=== PATIENT | male | born 2005 | race Caucasian/White ===

== ENCOUNTER 2024-02-27 23:59 | Emergency (ER) | payer OTHER, SELFPAY ==
[2024-02-28] VITALS: BP 152/85; BMI 27.9
--- NOTE | 2024-02-28 00:44 | ED.SKININJ ---
HPI-Injury
<POLLY Rodriguez - Last Filed: 02/28/24 06:12>
General
Chief Complaint: Skin Problem
Time Seen by Provider: 02/28/24 00:35
Travel History
Have you had any contact with someone who has COVID-19?: No
Do you have any symptoms of coronavirus? Fever > 100 degrees, chills, cough, shortness of breath, sore throat, loss of taste or smell, muscle aches, or headache?: No
History of Present Illness-Injury
Initial Injury comments:
This is a 18 yo male presenting for a laceration to his L anterior wrist which happened 1 hour ago. He states he fell in a parking lot and cut his wrist while reaching for the ground, he suspects it was a piece of glass. He states the wound has not
stopped bleeding since the injury.
He denies purulent drainage, N/V.
No neurovascular deficits proximal or distal to the injury.
Past History
<POLLY Rodriguez - Last Filed: 02/28/24 06:12>
Past History
ED Past Medical History: Psychiatric (Anxiety, Depression) and Other (Domenic schlatter's disease)
ED Past Surgical History: Orthopedic (ORIF Right elbow, Thumb surgery, )
Social History
Tobacco: Non-smoker
Alcohol: Occasional
Personal: Single
Living: with family
Review of Systems
<POLLY Rodriguez - Last Filed: 02/28/24 06:12>
Review of Systems
Allergies reviewed?: Yes
Constitutional: Reports no symptoms
Skin: Reports other (laceration)
Skin Exam
<POLLY Rodriguez - Last Filed: 02/28/24 06:12>
Laceration
Left Anterior Radial:
Orientation: diagonal
Type of Laceration: simple
Any active bleeding?: low grade venous oozing
Distal skin color and temperature: normal-warm & good color
Normal distal neurovascular exam: Yes
Range of motion: full
Phy Exam
<POLLY Rodriguez - Last Filed: 02/28/24 06:12>
General Physical Exam
General Presentation: well appearing
General age: appears stated age
Musculoskeletal Exam
Musculoskeletal Exam: full ROM
Skin Exam
Skin Exam: laceration (laceration on L anterior radius. No redness or swelling is noted.)
Course
<POLLY Rodriguez - Last Filed: 02/28/24 06:12>
Orders/Labs/Results
Orders:
Orders
02/28/24 00:54
CR Wrist - Left Min 2 Views Urgent
Comment:
Reason For Exam: possible foreign body
Vital Signs
Initial and Last Documented VS:
Initial Vital Signs
Temp Pulse Resp BP Pulse Ox
98 F 76 18 152/85 98
02/28/24 00:00 02/28/24 00:00 02/28/24 00:00 02/28/24 00:00 02/28/24 00:00
Last Documented Vital Signs
Temp Pulse Resp BP Pulse Ox
98 F 70 16 122/70 99
02/28/24 00:00 02/28/24 03:15 02/28/24 03:15 02/28/24 03:15 02/28/24 03:15
<Maged Wheeler MD - Last Filed: 02/28/24 03:14>
Orders/Labs/Results
Orders:
Orders
02/28/24 00:54
CR Wrist - Left Min 2 Views Urgent
Comment:
Reason For Exam: possible foreign body
Vital Signs
Initial and Last Documented VS:
Initial Vital Signs
Temp Pulse Resp BP Pulse Ox
98 F 76 18 152/85 98
02/28/24 00:00 02/28/24 00:00 02/28/24 00:00 02/28/24 00:00 02/28/24 00:00
Last Documented Vital Signs
Temp Pulse Resp BP Pulse Ox
98 F 70 16 122/70 99
02/28/24 00:00 02/28/24 03:15 02/28/24 03:15 02/28/24 03:15 02/28/24 03:15
Procedures
<Maged Wheeler MD - Last Filed: 02/28/24 03:14>
Laceration Closure
Left Distal Volar Wrist:
Status of Wound: clean
Size of Wound in cm: 4
Description of Wound Edges: sharp
Preparation: cleaned with SurClens
Anesthesia: 1% Lidocaine with epi
Revision/Debridement: routine- no revision
Type of Closure: single layer closure
Skin Closure Material: 5-0 nylon
Number of sutures: 6
<POLLY Rodriguez - Last Filed: 02/28/24 06:12>
MDM/Problems Addressed
Differential Diagnosis Includes:
Laceration L radius
- no FB on visual inspection and XRAY
MDM/Problems Addressed:
Wound was irrigated and closed with 6 sutures
<POLLY Rodriguez - Last Filed: 02/28/24 06:12>
*Radiology
Radiology exam reviewed: all reviewed NAD by ED Provider
*Critical Care Note
Total Time (30-74mins, 75-104mins- exclusive of procedures): Not Applicable
ED Attending Note
<POLLY Rodriguez - Last Filed: 02/28/24 06:12>
-
Portions of this chart may have been created with voice recognition software.� Occasional wrong word or��sound alike� substitutions may have occurred due to the inherent limitations of voice recognition software.
<Maged Wheeler MD - Last Filed: 02/28/24 03:14>
ED Attending Note
Patient seen and examined by attending physician: Yes
ED Attending Note:
Patient presents to ED for evaluation secondary to left wrist laceration, which occurred when he fell outside. Patient unsure how he was cut thinks that he may have hit 'glassy material'. Patient otherwise is healthy without any significant past
medical history. Patient denies any other injuries. Denies loss of sensation or weakness. Patient's vaccinations are up-to-date.
Physical Exam
General: no apparent distress, not acutely ill. afebrile
Head: nc/at. eomi
Neck: supple. normal range of motion.
Neuro: alert and oriented. no focal sensory/motor deficit
Skin: approx 3cm superficial laceration noted over volar surface of left wrist, without active bleeding. radial/ulnar pulse intact.
Psychiatric: well kept. interactive and cooperative
Extremities: no edema. no calf tenderness.
Discharge Plan
Departure
Patient Disposition: Home (Routine Discharge)
Date of Disposition: 02/28/24
Time of Disposition: 03:12
Patient with high blood pressure during this ER visit?: Yes
Condition: Good
Discharge Problem:
Laceration of wrist
Instructions: Laceration Repair With Stitches ED
Prescriptions:
No Action
acetaminophen-codeine 1 TABLET tablet
1 tab PO Q6HPRN PRN (Reason: pain) Qty: 12 0RF
Referrals:
Yo Meredith DO [Family Provider] -
Activity Restrictions/Additional Instructions:
As discussed, please follow-up with your primary care physician for reevaluation, including suture removal in 7 to 10 days.
Interventions
Interventions:
*Risk Screen - Suicide Last Done: 02/28/24 00:00
*General Assessment Last Done: 02/28/24 01:22
*Neglect/Abuse Screening Last Done: 02/28/24 00:00
ED- Fall Risk Assessment Last Done: 02/28/24 00:00
*Nursing Disposition Last Done: 02/28/24 03:27
ED-Skin Assessment Last Done: 02/28/24 01:20
Discharge Date and Time
Discharge Date/Time: 02/28/24 03:32
Print Language: [place]
[2024-02-28 03:15] VITALS: BP 122/70
== END 2024-02-28 03:32 | disposition home or self-care (01) ==
LOC: EMR 23:59
PROVIDERS: EMERGENCY PHYSICIAN Emergency Medicine; FAMILY PHYSICIAN Family Medicine
DX: S61.512A Laceration without foreign body of left wrist, initial encounter (principal); W19.XXXA Unspecified fall, initial encounter
CPT/HCPCS: 99283; 12002; 73100